=== PATIENT | female | born 1980 | race African-American/Black ===

== ENCOUNTER 2018-08-13 19:43 | Emergency (ER) | payer MEDICARE, MEDICAID ==
[2018-08-13] MEDS ORDERED: LIDOCAINE 2% VISCOUS SOLN 20 ML UDCUP PO ONE (21:54)
--- NOTE | 2018-08-13 21:59 | ER Document Report ---
ED Oral Problem - General Chief Complaint: Toothache Stated Complaint: TOOTH PAIN Time Seen by Provider: 08/13/18 21:43 Mode of Arrival: Ambulatory Information source: Patient Notes: 38-year-old female presented to ED for dental pain to tooth #17. She states the pain just started today. She states she has never had pain in his tooth before. There is a very large cavity to the tooth #17. There is no abscess noted at this time. There is no swelling to the face or jaw at this time. Patient does have a history of seizures otherwise she states she does not have any medical history. She states she does have Medicaid to pay for her prescriptions. She refused to take penicillin or ibuprofen at this time. She states she cannot take these while she takes her seizure medicine and it is time to take her seizure medicine at this time. TRAVEL OUTSIDE OF THE [place] IN LAST 30 DAYS: No - HPI Patient complains to provider of: Toothache Onset: This morning Onset: Gradual Quality of pain: Sharp, Throbbing Severity: Severe Pain Level: 5 Associated symptoms: Toothache. denies: Tongue swelling, Unable to swallow Worsened by: Cold Similar symptoms previously: No Recently seen / treated by doctor/dentist: No - Related Data Allergies/Adverse Reactions: No Known Allergies Allergy (Unverified 08/13/18 19:54) Past Medical History - General Information source: Patient - Social History Smoking Status: Current Every Day Smoker Cigarette use (# per day): Yes - 1 cigarette a day Chew tobacco use (# tins/day): No Smoking Education Provided: Yes Frequency of alcohol use: None Drug Abuse: None Occupation: None Lives with: Homeless Family History: Reviewed & Not Pertinent Patient has suicidal ideation: No Patient has homicidal ideation: No - Past Medical History Cardiac Medical History: Reports: None Pulmonary Medical History: Reports: None EENT Medical History: Reports: None Neurological Medical History: Reports: Hx Seizures Endocrine Medical History: Reports: None Renal/ Medical History: Reports: None Malignancy Medical History: Reports: None GI Medical History: Reports: None Musculoskeletal Medical History: Reports None Skin Medical History: Reports None Psychiatric Medical History: Reports: None Traumatic Medical History: Reports: None Infectious Medical History: Reports: None Surgical Hx: Negative Past Surgical History: Reports: None Physical Exam - Vital signs Vitals: Temp Pulse Resp BP Pulse Ox 98.3 F 96 20 144/87 H 99 08/13/18 19:59 08/13/18 19:59 08/13/18 19:59 08/13/18 19:59 08/13/18 19:59 Course - Re-evaluation Re-evalutation: 08/13/18 22:01 Presentation is most consistent with likely an infected tooth. Airway is patent. Vitals within normal limits. Patient is able swallow without any difficulty. There is no significant facial swelling. No evidence of Colin angina, apical abscess, or airway obstruction. Patient will be started on antibiotics. I've instructed to follow-up with dentistry as earliest ability fo r definitive management. At this time will discharge with return precautions and follow-up recommendations. Verbal discharge instructions given a the bedside and opportunity for questions given. Medication warnings reviewed. Patient is in agreement with this plan and has verbalized understanding of return precautions and the need for primary care follow-up in the next 24-72 hours. - Vital Signs Vital signs: Temp Pulse Resp BP Pulse Ox 98.2 F 86 20 139/84 H 100 08/13/18 21:56 08/13/18 21:56 08/13/18 19:59 08/13/18 21:56 08/13/18 21:56 Discharge - Discharge Clinical Impression: Pain due to dental caries Condition: Stable Disposition: HOME, SELF-CARE Additional Instructions: TOOTHACHE: Your pain is due to dental decay. The tooth must be repaired in order for you to feel better. You will, therefore, be referred to a dentist. We do not have dentists on the staff at [facility]. Severe swelling or drainage around a tooth usually means a dental abscess. This also requires evaluation and treatment by the dentist, but antibiotics may be prescribed while awaiting dental treatment. You should be rechecked immediately if you develop major swelling of the face, increasing pain, a lump in the jaw or gums, headache, difficulty swallowing, or fever. You stated you could not take a dose of penicillin or ibuprofen at this time. I have given you a prescription for the penicillin and ibuprofen for you to fill tomorrow for your dental pain. PENICILLIN V K: You have been given a prescription for Penicillin VK. Your physician has determined that this is the best antibiotic for your condition. Pen VK can be taken with meals, however more of the antibiotic gets into the bloodstream if it's taken on an empty stomach. Penicillin usually has no side effects. However, allergy to penicillins is common. If you have had an allergic reaction to any drug of the penicillin family, you should never take any other penicillin. Notify your doctor at once if you develop hives, itching, swelling, faintness, or shortness of breath. Have been given a syringe of viscous lidocaine. You could place a small amount of the lidocaine on your finger and apply it to the tooth that is hurting at this time. You can apply this viscous lidocaine every 3-4 hours to help with the pain. Do not put it on more frequently than every 3-4 hours. This will only deaden the pain you still need to go to a dentist to have the tooth removed. Ibuprofen Ibuprofen is an excellent, safe drug for pain control. In addition, it has potent antiinflammatory effects which are beneficial, especially in the treatment of injuries, arthritis, or tendonitis. It's best to take ibuprofen with food. Persons with ulcer disease or allergy to aspirin should notify their physician of this before taking ibuprofen. Take the medication exactly as prescribed. Don't take additional doses unless instructed to do so by your doctor. If you develop wheezing, shortness of breath, hives, faintness, stomach pain, vomiting, or dark black stools, return for re-evaluation at once. FOLLOW-UP CARE: You have been referred for follow-up care to the dentists listed below. Call the dentists office for an appointment as you were instructed or within the next two days. If you experience worsening or a significant change in your symptoms, notify the physician immediately or return to the Emergency Department at any time for re-evaluation. [facility] [address] [place], [place] [facility] [address] [place] [address] [facility] [address] [facility] [address] [facility] [address] [facility] [address] [facility]. [email or web address] [facility] [address] [place], [place] [id number] Tuesday- 8:00am to 5:00 pm Will see patients from other [facility]. Charges based on income and family size and accepts Medicare, Medicaid, and Insurances Will pull molars [facility] [id number] Hours of Operation 8:00 am - 4:30 pm weekdays The following dental offices accept Medicaid: [facility] [address]. [address] Dr. Jolley Dr. [place] Dr. Collado Michelet Mooney, [place], and [place] oral surgery Dr. Newell ([place]) Dr. Palomo ([place]) [facility] Drs. Gunn ([place]) Dr. Daniel ([place]) [facility] [facility] Dr. Perez ([place]) Drs. Cordon and ([place]) Medicaid Care Line Prescriptions: Ibuprofen [Motrin 800 mg Tablet] 800 mg PO Q8H PRN #30 tab PRN Reason: Penicillin V Potassium [Penicillin Vk 500 mg Tablet] 500 mg PO BID #20 tablet Forms: Smoking Cessation Education, Elevated Blood Pressure
[2018-08-13 22:18] VITALS: BP 139/84
== END 2018-08-13 22:23 | disposition home or self-care (01) ==
LOC: ER 19:43
DX: K02.9 Dental caries, unspecified (principal); K08.89 Other specified disorders of teeth and supporting structures; R56.9 Unspecified convulsions; Z79.899 Other long term (current) drug therapy; F17.210 Nicotine dependence, cigarettes, uncomplicated; Z59.0 Homelessness
CPT/HCPCS: 99282; J3490

== ENCOUNTER 2018-08-25 10:55 | Emergency (ER) | payer MEDICARE, MEDICAID ==
[2018-08-25] MEDS ORDERED: IBUPROFEN 600 MG TABLET PO ONE (12:09)
[2018-08-25] MEDS ORDERED: PENICILLIN V POTASSIUM 500 MG TABLET PO ONE (12:09)
[2018-08-25] MEDS ORDERED: OXYCODONE-ACETAMINOPHEN 5-325 MG TABLET PO ONE (12:09)
--- NOTE | 2018-08-25 12:10 | ER Document Report ---
HPI - HPI Time Seen by Provider: 08/25/18 11:56 Pain Level: 3 Notes: Patient is a 38-year-old female presented to the emergency department chief complaint of dental pain. Patient reports that she has pain to the lower left side over her wisdom tooth. She denies any fever, nausea, vomiting or chills. - CONSTITUTIONAL Constitutional: DENIES: Fever, Chills - NEURO Neurology: DENIES: Headache - REPRODUCTIVE Reproductive: DENIES: : Past Medical History - General Information source: Patient - Social History Smoking Status: Current Every Day Smoker Family History: Reviewed & Not Pertinent Patient has suicidal ideation: No Patient has homicidal ideation: No Neurological Medical History: Reports: Hx Seizures Renal/ Medical History: Denies: Hx Peritoneal Dialysis Vertical Provider Document - CONSTITUTIONAL Notes: PHYSICAL EXAMINATION: GENERAL: Well-appearing, well-nourished and in no acute distress. HEAD: Atraumatic, normocephalic. EYES: Pupils equal round extraocular movements intact, conjunctiva are normal. ENT: Nares patent, erythema noted around tooth #17 and 18, no drainable abscess identified. NECK: Normal range of motion LUNGS: No respiratory distress Musculoskeletal: Normal range of motion NEUROLOGICAL: Normal speech, normal gait. PSYCH: Normal mood, normal affect. SKIN: Warm, Dry, normal turgor, no rashes or lesions noted. - INFECTION CONTROL TRAVEL OUTSIDE OF THE [place] IN LAST 30 DAYS: No Course - Re-evaluation Re-evalutation: No drainable abscess identified on examination. Patient will be started on oral antibiotics and encouraged to follow-up with dentist. Patient verbalized understanding and agreement with this plan. - Vital Signs Vital signs: Temp Pulse Resp BP Pulse Ox 98.8 F 84 16 152/93 H 99 08/25/18 11:03 08/25/18 11:03 08/25/18 11:03 08/25/18 11:03 08/25/18 11:03 Discharge - Discharge Clinical Impression: Pain, dental Condition: Stable Disposition: HOME, SELF-CARE Additional Instructions: You have been seen for dental pain. It is very important that you follow-up with a dentist for definitive care. Please return if you develop fever greater than 101, swelling in your face, vomiting, difficulty breathing or swallowing, or any other symptoms that are concerning to you. For pain you should take ibuprofen 800 mg every 8 hours as needed. Follow-up with the [facility] [phone] Prescriptions: Ibuprofen [Motrin 600 mg Tablet] 600 mg PO Q6H PRN #30 tablet PRN Reason: Penicillin V Potassium [Penicillin Vk 500 mg Tablet] 500 mg PO BID #20 tablet
[2018-08-25 12:18] VITALS: BP 156/103
== END 2018-08-25 12:20 | disposition home or self-care (01) ==
LOC: ER 10:55
DX: K08.9 Disorder of teeth and supporting structures, unspecified (principal); F17.200 Nicotine dependence, unspecified, uncomplicated
CPT/HCPCS: 99282; A9270 ×3

== ENCOUNTER 2018-10-16 20:04 | Emergency (ER) | payer MEDICARE, MEDICAID ==
[2018-10-16 20:20] VITALS: BP 145/83
[2018-10-16] MEDS ORDERED: LIDOCAINE 1% INJ-PF (10 MG/ML) 30 ML SDV INJ ONE (21:51)
--- NOTE | 2018-10-16 22:54 | RADIOLOGY REPORT (SQ) ---
EXAM DESCRIPTION: XR FINGERS COMPLETED DATE/TME: 10/16/2018 21:51 CLINICAL HISTORY: 38 years, Female, finger infection COMPARISON: None. NUMBER OF VIEWS: 3 TECHNIQUE: 3 views of the right fourth digit LIMITATIONS: None. FINDINGS: Diffuse soft tissue swelling. No soft tissue gas. No fracture. No radiopaque foreign body IMPRESSION: Soft tissue swelling as above copyright 2010 [employer]- All Rights Reserved
[2018-10-16] MEDS ORDERED: IBUPROFEN 600 MG TABLET PO ONE (23:57)
[2018-10-16] MEDS ORDERED: ACETAMINOPHEN 325 MG TABLET PO ONE (23:57)
[2018-10-16] MEDS ORDERED: CEPHALEXIN 500 MG CAPSULE PO ONE (23:58)
[2018-10-16] MEDS ORDERED: SULFAMETHOXAZOLE/TRIMETHOPRIM 800-160 MG TABLET PO ONE (23:58)
--- NOTE | 2018-10-17 00:04 | ER Document Report ---
HPI - HPI Time Seen by Provider: 10/16/18 21:06 Pain Level: 3 Context: Patient is a 38-year-old female with a past medical history of seizures on lamotrigine who presents the emergency department with a chief complaint of right fourth finger pain. She states that she is not sure of whether or not she hit her hand on something, but states that she has pain to the right finger. She has a pus filled pocket to the lateral portion of her right fourth fingernail. She denies any fever, chills, body aches or any other symptoms. She states that she has had this before. Patient admits to biting her fingernails. - CONSTITUTIONAL Constitutional: DENIES: Fever, Chills - NEURO Neurology: DENIES: Weakness - CARDIOVASCULAR Cardiovascular: DENIES: Chest pain - REPRODUCTIVE Reproductive: DENIES: : - MUSCULOSKELETAL Musculoskeletal: REPORTS: Extremity pain - fingernail - DERM Skin Color: Normal Skin Problems: Pustule - Abcess to distal R 4th finger Past Medical History - Social History Smoking Status: Unknown if Ever Smoked Family History: Reviewed & Not Pertinent Patient has suicidal ideation: No Patient has homicidal ideation: No Neurological Medical History: Reports: Hx Seizures Renal/ Medical History: Denies: Hx Peritoneal Dialysis Vertical Provider Document - CONSTITUTIONAL Agree With Documented VS: Yes Exam Limitations: No Limitations General Appearance: No Apparent Distress - INFECTION CONTROL TRAVEL OUTSIDE OF THE [place] IN LAST 30 DAYS: No - HEENT HEENT: Atraumatic, Normocephalic - NECK Neck: Normal Inspection - RESPIRATORY Respiratory: No Respiratory Distress - CARDIOVASCULAR Cardiovascular: Regular Rate, Regular Rhythm Pulses: Normal: Radial - MUSCULOSKELETAL/EXTREMETIES Musculoskeletal/Extremeties: FROM, Tender - right 4th finger - NEURO Level of Consciousness: Awake, Alert, Appropriate Motor/Sensory: No Motor Deficit, No Sensory Deficit - DERM Integumentary: Warm, Dry, Abscess - Paronychia right fourth finger to the lateral aspect of fingernail Course - Re-evaluation Re-evalutation: Physical exam is consistent with a paronychia. A digital block was used for local anesthesia. The patient tolerated the procedure well. They will be placed on Bactrim and Keflex. Due to the smell of the purulent drainage, a wound culture was sent. I do not suspect a felon, tenosynovitis, or any life- threatening etiology at this time. Follow-up precautions were given. Verbal discharge instructions were given to the patient. They verbalized understanding. They are stable for discharge. - Vital Signs Vital signs: Temp Pulse Resp BP Pulse Ox 98.7 F 105 H 20 145/83 H 98 10/16/18 20:18 10/16/18 20:18 10/16/18 20:18 10/16/18 20:18 10/16/18 20:18 Procedures - Incision and Drainage Right Distal 4th digit mL's of anesthetic: 6 Blade size: 11 I&D procedure: Betadine prep applied, Shurclens applied Incision Method: Incision made by scalpel Amount/type of drainage: 2 mls/ purulent Discharge - Discharge Clinical Impression: Paronychia Condition: Stable Disposition: HOME, SELF-CARE Additional Instructions: You were seen for an abscess that required drainage. Please clean this area with soap and water twice daily and apply a topical antibiotic. Dress the area after each cleaning. Please return if you develop fever, vomiting, the pain at the site worsens, you notice spreading redness from the area, or you have any other symptoms that are concerning to you. Please follow-up with your primary care provider in regards to this visit. You are being started on antibiotics. Finish all your antibiotics as prescribed. Prescriptions: Cephalexin Monohydrate [Keflex 500 mg Capsule] 500 mg PO Q6H 7 Days #28 capsule Sulfamethoxazole/Trimethoprim [Bactrim Ds Tablet] 1 each PO BID 7 Days #14 tablet
== END 2018-10-17 00:45 | disposition home or self-care (01) ==
LOC: ER 20:04
DX: L03.011 Cellulitis of right finger (principal)
CPT/HCPCS: 87070; 87205; 87075; 73140; 10060; A9270 ×4; J3490; 99283

== ENCOUNTER 2018-10-17 22:13 | Emergency (ER) | payer MEDICARE, MEDICAID ==
--- NOTE | 2018-10-18 01:04 | ER Document Report ---
ED General - General Chief Complaint: Headache Stated Complaint: HEAD PRESSURE Time Seen by Provider: 10/18/18 00:54 Notes: Patient is a 38-year-old female with seizure disorder that presents to the emergency department for chief complaint of head pressure after seizure today. Patient reports she had a seizure earlier today in the afternoon when she [place] at the mall, she states that afterwards she was having [facility], and told some bystanders, and they called EMS for her because of the headache, the headache has since resolved, she states it was in the front of her head, she states it has "slacked down" is no longer causing her headache, but she is worried that it may come back if she leaves the emergency department without treatment. She does take lamotrigine, and states that she did take her medication prior to ED arrival. She states she has not had a seizure in a long time, and states that she is compliant with her medication. She feels somewhat drowsy at this time and tired, denies any blurred vision, loss of vision, numbness, tingling or weakness in any extremity. Past Medical History: Seizure disorder, migraine headaches Past Surgical History: Cholecystectomy Social History: Admits to smoking cigarettes, denies alcohol or illicit drug use. Family History: Reviewed and noncontributory for presenting illness Allergies: Reviewed, see documented allergy list. REVIEW OF SYSTEMS: Other than noted above, the 12 point review of systems was reviewed with the patient and were negative, all pertinent findings are included in the HPI. PHYSICAL EXAMINATION: Vital signs reviewed, nursing noted reviewed. GENERAL: Well-appearing, well-nourished and in no acute distress. HEAD: Atraumatic, normocephalic. EYES: Eyes appear normal, extraocular movements intact, sclera anicteric, conjunctiva are normal. PERRLA ENT: nares patent, oropharynx clear without exudates. Moist mucous membranes. NECK: Normal range of motion, supple without lymphadenopathy, no neck stiffness LUNGS: Breath sounds clear to auscultation bilaterally and equal. No wheezes rales or rhonchi. HEART: Regular rate and rhythm without murmurs ABDOMEN: Soft, obese, nontender, normoactive bowel sounds. No rebound, guarding, or rigidity. No masses appreciated. EXTREMITIES: Nontender, good range of motion, no pitting or edema. NEUROLOGICAL: No focal neurological deficits. Moves all extremities spontaneously Motor and sensory grossly intact on exam. PSYCH: Normal mood, normal affect. SKIN: Warm, Dry, normal turgor, no rashes or lesions noted on exposed skin TRAVEL OUTSIDE OF THE [place] IN LAST 30 DAYS: No - Related Data Allergies/Adverse Reactions: No Known Allergies Allergy (Verified 08/25/18 11:01) Past Medical History - Social History Smoking Status: Current Every Day Smoker Chew tobacco use (# tins/day): No Frequency of alcohol use: None Drug Abuse: None Family History: Reviewed & Not Pertinent Patient has suicidal ideation: No Patient has homicidal ideation: No - Past Medical History Cardiac Medical History: Reports: Hx Hypertension Neurological Medical History: Reports: Hx Seizures Renal/ Medical History: Denies: Hx Peritoneal Dialysis Past Surgical History: Reports: Hx Cholecystectomy Physical Exam - Vital signs Vitals: Temp Pulse Resp BP Pulse Ox 98.2 F 106 H 18 150/82 H 99 10/17/18 22:45 10/17/18 22:45 10/17/18 22:45 10/17/18 22:45 10/17/18 22:45 Course - Re-evaluation Re-evalutation: Presentation of well-appearing patient after having a seizure. Patient has a known history of seizures. No obvious trigger for today's episode. The patient has returned to baseline without intervention. No focal neurologic deficits. No infectious symptoms, vital sign abnormalities, or evidence of trauma. No indication for laboratories or imaging based on reassuring evaluation and known history of seizures. The patient will be discharged home with recommendations for close follow-up with primary care as well as their neurologist. Return precautions have been reviewed and patient has verbalized understanding. Patient's headache has since resolved, she was given a dose of Fioricet in the ED to help prevent further headache this evening, advised to follow-up with her neurologist as noted, patient agreed with plan of care, given prescription for Fioricet to take only if needed for headache returns, if it develops and becomes severe, she was advised to return to the emergency department. - Vital Signs Vital signs: Temp Pulse Resp BP Pulse Ox 98.2 F 106 H 18 150/82 H 99 10/17/18 22:45 10/17/18 22:45 10/17/18 22:45 10/17/18 22:45 10/17/18 22:45 Discharge - Discharge Clinical Impression: Seizure Headache Qualifiers: Headache type: unspecified Headache chronicity pattern: unspecified pattern Intractability: not intractable Qualified Code(s): R51 - Headache Condition: Stable Disposition: HOME, SELF-CARE Instructions: Headache ([facility]), Seizure, Known Epileptic ([facility]) Additional Instructions: Please follow-up with your neurologist, call for an appointment tomorrow, continue taking the medication you have been prescribed as directed, you may take the prescribed headache medication only if needed if your headache returns, if it becomes severe, and not improving at home, please return to the emergency department to be reevaluated. Prescriptions: Butalb/Acetaminophen/Caffeine [Fioricet (50-325-40 mg) Tablet] 1 tab PO Q6H PRN #10 tab PRN Reason: headache Referrals: ODILIA EATON MD [ACTIVE STAFF] - Follow up in 3-5 days (primary care. )
[2018-10-18] MEDS ORDERED: BUTALB/ACETAMINOPHEN/CAFFEINE 1 TAB EACH PO ONE (01:05)
[2018-10-18 02:22] VITALS: BP 121/68
== END 2018-10-18 01:50 | disposition home or self-care (01) ==
LOC: ER 22:13
DX: R51 Headache (principal); G40.909 Epilepsy, unspecified, not intractable, without status epilepticus; Z79.899 Other long term (current) drug therapy; R53.83 Other fatigue; R40.0 Somnolence; F17.210 Nicotine dependence, cigarettes, uncomplicated; I10 Essential (primary) hypertension
CPT/HCPCS: 99284; J3490

== ENCOUNTER 2018-10-19 23:09 | Emergency (ER) | payer MEDICARE, MEDICAID ==
[2018-10-20] MEDS ORDERED: ASPIRIN 81 MG TABLET, CHEWABLE PO ONE (03:27)
[2018-10-20] MEDS ORDERED: BUTALB/ACETAMINOPHEN/CAFFEINE 1 TAB EACH PO ONE (03:34)
--- NOTE | 2018-10-20 04:53 | ER Document Report ---
ED Medical Screen (RME) - General Chief Complaint: Chest Pain Stated Complaint: CHEST PAIN,HEADACHE Time Seen by Provider: 10/20/18 03:27 Mode of Arrival: Ambulatory Information source: Patient, [facility] Records Notes: 38-year-old female with hypertension, seizure disorder, recurrent headaches presents with multiple complaints of headache, chest pain, abdominal pain that started at 11 PM. Patient was seen 3 days ago after a seizure and had a headache at that time. She denies any recent cough, shortness of breath. I have greeted and performed a rapid initial assessment of this patient. A c omprehensive ED assessment and evaluation of the patient, analysis of test results and completion of medical decision making process we will be contacted by additional ED providers. PHYSICAL EXAMINATION: Vital signs reviewed GENERAL: Well-appearing, well-nourished and in no acute distress. LUNGS: No respiratory distress Musculoskeletal: Normal range of motion NEUROLOGICAL: Normal speech, normal gait. PSYCH: Normal mood, normal affect. SKIN: Warm, Dry, normal turgor, no rashes or lesions noted. TRAVEL OUTSIDE OF THE [place] IN LAST 30 DAYS: No - HPI Onset: This evening Onset/Duration: Gradual, Persistent Quality of pain: Pressure Severity: Moderate Associated Symptoms: Chest pain, Headache, Nausea Exacerbated by: Denies Relieved by: Denies Similar symptoms previously: Yes Recently seen / treated by doctor: Yes - Related Data Smoking: Non-smoker Frequency of alcohol use: None Drug Abuse: None Allergies/Adverse Reactions: No Known Allergies Allergy (Verified 08/25/18 11:01) Past Medical History - Past Medical History Cardiac Medical History: Reports: Hx Hypertension Neurological Medical History: Reports: Hx Seizures Renal/ Medical History: Denies: Hx Peritoneal Dialysis Past Surgical History: Reports: Hx Cholecystectomy Physical Exam - Vital signs Vitals: Temp Pulse Resp BP Pulse Ox 98.3 F 73 20 141/79 H 98 10/19/18 23:42 10/19/18 23:42 10/19/18 23:42 10/19/18 23:42 10/19/18 23:42 Course - Vital Signs Vital signs: Temp Pulse Resp BP Pulse Ox 98.3 F 73 20 141/79 H 98 10/19/18 23:42 10/19/18 23:42 10/19/18 23:42 10/19/18 23:42 10/19/18 23:42
[2018-10-20 05:25] LABS: ABSOLUTE EOSINOPHILS # (AUTO) 0.1 10^3/uL (0.0-0.6); ABSOLUTE LYMPHOCYTES (AUTO) 1.5 10^3/uL (0.5-4.7); ABSOLUTE MONOCYTES (AUTO) 0.3 10^3/uL (0.1-1.4); ABSOLUTE NEUT (AUTO) 1.6 10^3/uL (1.7-8.2); BASOPHILS % (AUTO) 0.5 % (0-2); EOSINOPHILS % (AUTO) 1.5 % (0-6); HEMATOCRIT 33.5 % (36.0-47.0); HEMOGLOBIN 10.4 g/dL (12.0-15.5); LYMPHOCYTES % (AUTO) 42.2 % (13-45); MEAN CORPUSCULAR HEMOGLOBIN 21.4 pg (27.0-33.4); MEAN CORPUSCULAR VOLUME 69 fl (80-97); MONOCYTES % (AUTO) 8.9 % (3-13); PLATELET COUNT 262 10^3/uL (150-450); RED BLOOD COUNT 4.86 10^6/uL (3.72-5.28); RED CELL DISTRIBUTION WIDTH 17.9 % (11.5-14.0); SEGMENTED NEUTROPHILS % (AUTO) 46.9 % (42-78); TOTAL CELLS COUNTED % (AUTO) 100 %; WHITE BLOOD COUNT 3.4 10^3/uL (4.0-10.5)
[2018-10-20 05:41] LABS: BLOOD UREA NITROGEN 11 mg/dL (7-20); CALCIUM 9.6 mg/dL (8.4-10.2); CARBON DIOXIDE 30 mmol/L (22-30); CHLORIDE 103 mmol/L (98-107); GLUCOSE 100 mg/dL (75-110); POTASSIUM 3.5 mmol/L (3.6-5.0)
[2018-10-20 05:42] LABS: ALBUMIN 4.3 g/dL (3.5-5.0); ALKALINE PHOSPHATASE 80 U/L (38-126); ANION GAP 11 (5-19); ASPARTATE AMINO TRANSFERASE 25 U/L (14-36); BILIRUBIN,DIRECT 0.2 mg/dL (0.0-0.4); BILIRUBIN,TOTAL 0.4 mg/dL (0.2-1.3); CREATINE KINASE 335 U/L (30-135); TOTAL PROTEIN 7.4 g/dL (6.3-8.2)
[2018-10-20 05:56] LABS: CREATINE KINASE MB 0.94 ng/mL (<4.55)
[2018-10-20 05:58] LABS: TROPONIN I < 0.012 ng/mL
--- NOTE | 2018-10-20 06:32 | RADIOLOGY REPORT (SQ) ---
EXAM DESCRIPTION: X-ray two view chest. CLINICAL HISTORY: 38 years Female, chest pain COMPARISON: None. TECHNIQUE: PA and Lateral views of the chest performed on 10/20/2018 at 5:56 AM FINDINGS: The lungs are well expanded and are clear. The costophrenic sulci are clear. There is no evidence of a pneumothorax. The cardiac silhouette is normal in size. The mediastinal contours are normal. No acute osseous abnormalities are identified. No focal soft tissue abnormalities are identified. IMPRESSION: No evidence of acute intrathoracic disease.
[2018-10-20] MEDS ORDERED: KETOROLAC TROMETHAMINE INJ/PF 30 MG/1 ML SDV IV ONE (06:33)
--- NOTE | 2018-10-20 06:34 | ER Document Report ---
ED General - General Chief Complaint: Chest Pain Stated Complaint: CHEST PAIN,HEADACHE Time Seen by Provider: 10/20/18 03:27 Mode of Arrival: Ambulatory TRAVEL OUTSIDE OF THE [place] IN LAST 30 DAYS: No - HPI Notes: Patient presents with midsternal nonradiating continuous chest pain that started yesterday morning. She does endorse that she has been picking up a lot of heavy bags and her pain is worse with chest wall movement. Denies any recent cough congestion. She does not have any history of heart attack or strokes. She is a daily smoker. - Related Data Allergies/Adverse Reactions: No Known Allergies Allergy (Verified 08/25/18 11:01) Past Medical History - General Information source: Patient, [facility] Records - Social History Smoking Status: Never Smoker Chew tobacco use (# tins/day): No Frequency of alcohol use: None Drug Abuse: None Family History: Reviewed & Not Pertinent Patient has suicidal ideation: No Patient has homicidal ideation: No - Past Medical History Cardiac Medical History: Reports: Hx Hypertension Neurological Medical History: Reports: Hx Seizures Renal/ Medical History: Denies: Hx Peritoneal Dialysis Past Surgical History: Reports: Hx Cholecystectomy Review of Systems - Review of Systems Constitutional: No symptoms reported EENT: No symptoms reported Cardiovascular: No symptoms reported, Chest pain Respiratory: No symptoms reported Gastrointestinal: No symptoms reported Genitourinary: No symptoms reported Female Genitourinary: No symptoms reported Musculoskeletal: No symptoms reported Skin: No symptoms reported Hematologic/Lymphatic: No symptoms reported Neurological/Psychological: No symptoms reported Physical Exam - Vital signs Vitals: Temp Pulse Resp BP Pulse Ox 98.3 F 73 20 141/79 H 98 10/19/18 23:42 10/19/18 23:42 10/19/18 23:42 10/19/18 23:42 10/19/18 23:42 - General General appearance: Appears well, Alert - HEENT Head: Normocephalic Eyes: Normal Conjunctiva: Normal - Respiratory Respiratory status: No respiratory distress Chest status: Nontender Breath sounds: Normal Chest palpation: Other - Reproducible chest wall pain with palpation midsternal - Cardiovascular Rhythm: Regular Heart sounds: Normal auscultation Murmur: No - Abdominal Inspection: Normal Distension: No distension Bowel sounds: Normal Tenderness: Nontender - Extremities General upper extremity: Normal inspection General lower extremity: Normal inspection - Neurological Neuro grossly intact: Yes Cognition: Normal Orientation: AAOx4 - Psychological Associated symptoms: Normal affect Course - Re-evaluation Re-evalutation: 10/20/18 06:32 Patient well-appearing in no acute distress with reproducible chest wall tenderness to palpation as well as chest wall movements on exam. Patient states that she was lifting a lot of heavy bag yesterday and after that time her pain started. EKG shows no concerning findings as well as negative troponin. 10/20/18 07:46 Patient symptoms improved with Toradol including headache. Patient will be discharged with 5 days naproxen PCP follow-up return precautions provided - Vital Signs Vital signs: Temp Pulse Resp BP Pulse Ox 98.3 F 73 20 141/79 H 100 10/19/18 23:42 10/19/18 23:42 10/19/18 23:42 10/19/18 23:42 10/20/18 05:44 - Laboratory Result Diagrams: 10/20/18 05:05 10/20/18 05:05 Laboratory results interpreted by me: 10/20/18 10/20/18 05:05 05:05 WBC 3.4 L Hgb 10.4 L Hct 33.5 L MCV 69 L MCH 21.4 L MCHC 31.0 L RDW 17.9 H Absolute Neuts (auto) 1.6 L Potassium 3.5 L Creatine Kinase 335 H - EKG Interpretation by Mn EKG shows normal: Sinus rhythm Rate: Normal - No concerning ST depressions or elevations with normal axis and intervals Discharge - Discharge Clinical Impression: Chest pain Qualifiers: Chest pain type: other chest pain Qualified Code(s): R07.89 - Other chest pain Headache Qualifiers: Headache type: other headache syndrome Qualified Code(s): G44.89 - Other headache syndrome Condition: Good Disposition: HOME, SELF-CARE Instructions: Chest Wall Pain ([facility]), Headache ([facility]) Additional Instructions: His visit your primary care doctor in the next 2 to 4 days for reevaluation of symptoms continue. Return to the emergency department for any other concerns. Prescriptions: Naproxen 500 mg PO BID PRN #10 tablet PRN Reason:
[2018-10-20 08:06] VITALS: BP 115/71
--- NOTE | 2018-10-20 12:26 | EKG REPORT ---
SEVERITY:- NORMAL ECG - SINUS RHYTHM : Confirmed by: Iman Dubois MD 20-Oct-2018 12:25:29
== END 2018-10-20 08:12 | disposition home or self-care (01) ==
LOC: ER 23:09
DX: R07.89 Other chest pain (principal); R51 Headache; I10 Essential (primary) hypertension
CPT/HCPCS: 93005; 99285; 96374; 36415; 82553; 82550; 85025; 80053; 84484; 71046; 93010; A9270 ×2; J1885; J3490

== ENCOUNTER 2018-10-27 21:39 | Emergency (ER) | payer MEDICARE, MEDICAID ==
--- NOTE | 2018-10-27 23:45 | ER Document Report ---
HPI - HPI Time Seen by Provider: 10/27/18 23:31 Pain Level: 3 Notes: Patient is a 38-year-old female with a history of Seizure disorder and migraine headaches who presents complaining of swelling to her feet and lower legs bilaterally that have been developing over the past week. Patient states that she usually does not have swelling to her legs otherwise. Patient states that she is homeless and is constantly on her feet and usually standing for prolonged periods. Patient states that she does have soreness to her feet, but not to her legs. She is otherwise eating and drinking without difficulty. She is urinating normally and having normal bowel movements. Denies drug allergies. Patient does admit to smoking cigarettes. No history of DVT or PE. She is not on any hormones and has not been traveling long distances recently. Denies any headache, fever, URI, sore throat, chest pain, palpitations, syncope, cough, shortness of breath, wheeze, dyspnea, abdominal pain, nausea/vomiting/diarrhea, urinary retention, dysuria, hematuria, loss of control of bowel or bladder, numbness/tingling, muscle paralysis/weakness, or rash. - ROS Systems Reviewed and Negative: Yes All other systems reviewed and negative - REPRODUCTIVE Reproductive: DENIES: : Past Medical History - Social History Smoking Status: Current Some Day Smoker Family History: Reviewed & Not Pertinent - Past Medical History Cardiac Medical History: Reports: Hx Hypertension Neurological Medical History: Reports: Hx Seizures Renal/ Medical History: Denies: Hx Peritoneal Dialysis Past Surgical History: Reports: Hx Cholecystectomy Vertical Provider Document - CONSTITUTIONAL Agree With Documented VS: Yes Notes: PHYSICAL EXAMINATION: GENERAL: Well-appearing, well-nourished and in no acute distress. LUNGS: Breath sounds clear to auscultation bilaterally and equal. No wheezes rales or rhonchi. HEART: Regular rate and rhythm without murmurs, rubs, gallops. ABDOMEN: Soft, nontender, nondistended abdomen. No guarding, no rebound. Bowel sounds present throughout. Musculoskeletal: Lower extremities: FROM to passive/active. Strength 5+/5. N/V intact distal. No bony tenderness appreciated. No calf tenderness. Extremities: 1-2+ pitting edema b/l LE's and equal b/l. Peripheral pulses 2+. Capillary refill less than 3 seconds. NEUROLOGICAL: Normal speech, normal gait. Normal sensory, motor exams PSYCH: Normal mood, normal affect. SKIN: Warm, Dry, normal turgor, no rashes or lesions noted. - INFECTION CONTROL TRAVEL OUTSIDE OF THE [place] IN LAST 30 DAYS: No Course - Re-evaluation Re-evalutation: 10/28/18 01:37 Patient is an afebrile, well-hydrated, 38-year-old female who presents with bilateral lower extremity edema. Vitals are acceptable without significant tachycardia, tachypnea, or hypoxia. PE is otherwise unremarkable. I suspect that this is most likely from venous insufficiency. Patient is on her feet most of the day as she is homeless and walking continuously. CBC, CMP, BNP unremarkable. Opal negative bilaterally no lower extremity asymmetry. No history of blood clotting. Low DVT risk factors aside from smoking. Patient is PERC negative and Wells negative. She has no chest pain, dyspnea on exertion, or shortness of breath. She had an unremarkable chest x-ray for CHF or cardiomegaly recently. Low suspicion for any ACS, PE, pneumothorax, peric arditis, dissection, respiratory compromise, severe dehydration, sepsis, meningitis, compartment syndrome, septic joint, or other systemic emergent condition at this time. Patient is aware that her condition can change from initial presentation and she needs to monitor symptoms closely and seek medical attention for any acute changes. I will send her home with a short course of Lasix that she may use as directed and to monitor blood pressure if doing so. Recommend conservative measures for symptoms. Recheck with your PCM in 3-5 days. Return to the ED with any worsening/concerning symptoms otherwise as reviewed in discharge. Patient is in agreement. - Vital Signs Vital signs: Temp Pulse Resp BP Pulse Ox 98.9 F 94 18 136/64 H 100 10/27/18 21:46 10/27/18 21:46 10/27/18 21:46 10/27/18 21:46 10/27/18 21:46 - Laboratory Result Diagrams: 10/27/18 23:54 10/27/18 23:54 Discharge - Discharge Clinical Impression: Bilateral lower extremity edema, Bilateral foot pain Condition: Stable Disposition: HOME, SELF-CARE Additional Instructions: Rest, Ice, Compression, Elevation Compression stockings may help Take medications as directed and monitor blood pressure if taking the medicine Tylenol/ibuprofen as needed Light stretches daily Strength exercises as able Moist heat and massage may help F/u with your PCP in 3-5 days for a recheck Consider consult(s) with Orthopedics/physical therapy for ongoing/worsening symptoms Return to the ED with any worsening symptoms and/or development of fever, headache, chest pain, palpitations, syncope, shortness of breath, trouble breathing, abdominal pain, n/v/d, muscle weakness/paralysis, numbness/tingling, swelling, redness, or other worsening symptoms that are concerning to you. Prescriptions: Furosemide [Lasix] 20 mg PO DAILY #15 tablet Forms: Elevated Blood Pressure, Smoking Cessation Education Referrals: [facility] [Provider Group] - Follow up in 3-5 days
[2018-10-28 00:13] LABS: ABSOLUTE EOSINOPHILS # (AUTO) 0.1 10^3/uL (0.0-0.6); ABSOLUTE LYMPHOCYTES (AUTO) 1.7 10^3/uL (0.5-4.7); ABSOLUTE MONOCYTES (AUTO) 0.4 10^3/uL (0.1-1.4); ABSOLUTE NEUT (AUTO) 2.5 10^3/uL (1.7-8.2); BASOPHILS % (AUTO) 0.6 % (0-2); EOSINOPHILS % (AUTO) 1.3 % (0-6); HEMATOCRIT 32.4 % (36.0-47.0); HEMOGLOBIN 9.9 g/dL (12.0-15.5); LYMPHOCYTES % (AUTO) 37.2 % (13-45); MEAN CORPUSCULAR HEMOGLOBIN 21.3 pg (27.0-33.4); MEAN CORPUSCULAR HGB CONC 30.7 g/dL (32.0-36.0); MEAN CORPUSCULAR VOLUME 69 fl (80-97); MONOCYTES % (AUTO) 8.1 % (3-13); PLATELET COUNT 234 10^3/uL (150-450); RED BLOOD COUNT 4.67 10^6/uL (3.72-5.28); RED CELL DISTRIBUTION WIDTH 18.4 % (11.5-14.0); SEGMENTED NEUTROPHILS % (AUTO) 52.8 % (42-78); TOTAL CELLS COUNTED % (AUTO) 100 %; WHITE BLOOD COUNT 4.7 10^3/uL (4.0-10.5)
[2018-10-28 00:22] LABS: ALBUMIN 4.3 g/dL (3.5-5.0); ALKALINE PHOSPHATASE 86 U/L (38-126); ANION GAP 10 (5-19); ASPARTATE AMINO TRANSFERASE 25 U/L (14-36); BILIRUBIN,DIRECT 0.3 mg/dL (0.0-0.4); BILIRUBIN,TOTAL 0.5 mg/dL (0.2-1.3); BLOOD UREA NITROGEN 11 mg/dL (7-20); CALCIUM 9.3 mg/dL (8.4-10.2); CARBON DIOXIDE 27 mmol/L (22-30); CHLORIDE 104 mmol/L (98-107); GLUCOSE 91 mg/dL (75-110); POTASSIUM 3.5 mmol/L (3.6-5.0); TOTAL PROTEIN 7.3 g/dL (6.3-8.2)
[2018-10-28 01:45] VITALS: BP 125/83
== END 2018-10-28 01:43 | disposition home or self-care (01) ==
LOC: ER 21:39
DX: M79.671 Pain in right foot (principal); M79.672 Pain in left foot; R60.9 Edema, unspecified; I10 Essential (primary) hypertension; Z90.49 Acquired absence of other specified parts of digestive tract
CPT/HCPCS: 36415; 80053; 83880; 85025; 99284

== ENCOUNTER 2018-10-30 23:54 | Emergency (ER) | payer MEDICARE, MEDICAID ==
[2018-10-31 00:01] VITALS: BP 145/90
[2018-10-31] MEDS ORDERED: TRAMADOL HCL 50 MG TABLET PO ONE (00:19)
--- NOTE | 2018-10-31 00:28 | ER Document Report ---
ED Extremity Problem, Lower - General Chief Complaint: Feet Swelling Stated Complaint: FOOT SWELLING Time Seen by Provider: 10/31/18 00:12 TRAVEL OUTSIDE OF THE [place] IN LAST 30 DAYS: No - HPI Notes: Patient complains of severe bilateral foot pain. She states that is due to constantly standing on her feet. She also states her feet have been swelling. She was seen here 2 days ago for similar concerns and had unremarkable laboratories at that time. She is also recently had an ultrasound of her lower extremities that has no evidence of DVT. Patient denies any chest pain or shortness of breath. No injury or trauma to the feet except as above. The pain is an aching sensation and is severe per patient. It is worse with movement and better with rest. It does radiate up both legs. She states nothing is new since her visit on October 28, 2018. She states she returned because the pain is not better. - Related Data Allergies/Adverse Reactions: No Known Allergies Allergy (Verified 08/25/18 11:01) Past Medical History - General Information source: Patient - Social History Smoking Status: Current Every Day Smoker Frequency of alcohol use: None Drug Abuse: None Family History: Reviewed & Not Pertinent - Past Medical History Cardiac Medical History: Reports: Hx Hypertension Neurological Medical History: Reports: Hx Seizures Renal/ Medical History: Denies: Hx Peritoneal Dialysis Past Surgical History: Reports: Hx Cholecystectomy Review of Systems - Review of Systems Constitutional: Malaise. denies: Fever Cardiovascular: denies: Chest pain, Dyspnea Respiratory: denies: Cough, Short of breath Musculoskeletal: Leg swelling, Ankle swelling Physical Exam - Vital signs Vitals: Temp Pulse Resp BP Pulse Ox 98.2 F 87 19 145/90 H 98 10/30/18 23:59 10/30/18 23:59 10/30/18 23:59 10/30/18 23:59 10/30/18 23:59 Interpretation: Hypertensive - General General appearance: Appears well, Alert - HEENT Head: Normocephalic, Atraumatic Eyes: Normal Pupils: PERRL - Respiratory Respiratory status: No respiratory distress Chest status: Nontender Breath sounds: Normal Chest palpation: Normal - Cardiovascular Rhythm: Regular Heart sounds: Normal auscultation Murmur: No - Abdominal Inspection: Normal Distension: No distension Bowel sounds: Normal Tenderness: Nontender Organomegaly: No organomegaly - Back Back: Normal, Nontender - Extremities General upper extremity: Normal inspection, Nontender General lower extremity: Nontender, Edema - 2+ bilat, Normal ROM, Other - 2+ dp on both feet - Neurological Neuro grossly intact: Yes Cognition: Normal Orientation: AAOx4 [place] Coma Scale Eye Opening: Spontaneous Angie Coma Scale Verbal: Oriented Angie Coma Scale Motor: Obeys Commands Angie Coma Scale Total: 15 Speech: Normal Motor strength normal: LUE, RUE, LLE, RLE Sensory: Normal - Psychological Associated symptoms: Normal affect, Normal mood - Skin Skin Temperature: Warm Skin Moisture: Dry Skin Color: Normal Course - Vital Signs Vital signs: Temp Pulse Resp BP Pulse Ox 98.2 F 87 19 145/90 H 98 10/30/18 23:59 10/30/18 23:59 10/30/18 23:59 10/30/18 23:59 10/30/18 23:59 Discharge - Discharge Clinical Impression: Bilateral lower extremity edema Condition: Stable Disposition: HOME, SELF-CARE Instructions: Edema, Peripheral ([facility]) Prescriptions: Tramadol HCl [Ultram 50 mg Tablet] 50 mg PO Q4HP PRN 3 Days #12 tab PRN Reason:
== END 2018-10-31 00:38 | disposition home or self-care (01) ==
LOC: ER 23:54
DX: R60.0 Localized edema (principal); F17.200 Nicotine dependence, unspecified, uncomplicated; I10 Essential (primary) hypertension
CPT/HCPCS: 99283; A9270